=== PATIENT | female | born 1945 | race Caucasian/White ===

== ENCOUNTER 2019-06-21 07:25 | Day surgery (SDC) | payer MEDICARE ==
[~2019-06-21] VITALS: Ht 167.6 cm; Wt 64.0 kg
[~2019-06-21 07:25] MED LIST: LEVOTHYROXINE100 MCG PO; PRAVASTATIN SOD40 MG PO
--- NOTE | 2019-06-21 09:47 | NUR ---
06/21/19 0947 Ana Mcdonald 0991 PATIENT ARRIVES TO PACU SLEEPING, AWAKENS WITH VERBAL STIMULI, THEN BACK TO SLEEP. RESP EVEN AND UNLABORED, NC AT 2 LITERS, TURNED OFF ON ARRIVAL TO PACU.
--- NOTE | 2019-06-22 06:44 | OR ---
[facility] [address] [place], [place] [address] Signed DATE OF OPERATION: 06/21/2019 SURGEON: Tatyana Varner MD PREOPERATIVE DIAGNOSES: 1. Dysplastic polyp in 2010 requiring low anterior resection. 2. Dysplastic lesion, distal left colon requiring partial colectomy in approximately 2013. 3. Anastomotic stricture requiring dilation x2. 4. Diverticulosis (2014). 5. Adenomatous polyp (2014). POSTOPERATIVE DIAGNOSES: 1. 4-6 mm polyps at 42 cm, 35 cm, 20 cm (tattoo) and 6 cm. 2. Moderate internal hemorrhoid. 3. Colorectal anastomosis at 8-10 cm. PROCEDURE: Colonoscopy with hot biopsy. ESTIMATED BLOOD LOSS: None. INDICATIONS: Ericka is a 73-year-old female, who around 2010 had a dysplastic lesion in the distal sigmoid colon. She underwent a low anterior resection at that time. It sounds like the anastomosis was dilated at least twice. In followup around 2013, she had another dysplastic lesion in that distal left colon, so she had a partial colectomy and that came back without cancer. She has never required chemo or radiation. The second dilation was mainly for good measure. She is also known to have some diverticulosis documented in 2014. Again in 2014, she had an adenomatous colonic polyp removed. In the meantime, she is retired and moved down to [place], [place]. She was asked to see me in followup for a repeat colonoscopy. Her surgeon had asked that she come every 5 years. She gives no lower GI complaints. There is no family history of colon cancer or polyps. I had met with Ericka in the office and over several weeks we were able to track down her records. I had given her a booklet on colonoscopy. We did review that in detail. She understands colonoscopy quite well. She understands there is risk including, but not limited to gas, bloating, crampy abdominal pain, bleeding, perforation requiring surgery, and missed diagnosis. In addition, she does get nauseated with her bowel preps. We did offer her antiemetics, but she declined. She Electronically Signed By: TATYANA VARNER MD 06/22/19 0644 PATIENT NAME: ERICKA TIDWELL OPERATIVE REPORT DATE OF : 47 REPORT #: [id number] PHYSICIAN: TATYANA VARNER MD PCP: CARMEN GAMBOA DO REPORT IS CONFIDENTIAL AND NOT TO BE RELEASED WITHOUT AUTHORIZATION [facility] [address] [place], [place] [address] Signed said this time was better, but she still had some nausea. Consequently, the next time she might consider a longer bowel prep over several more hours and she might consider taking antiemetics. In addition, she has always done well with her Versed and fentanyl for sedation. She had expressed understanding and wished to proceed. PROCEDURE NOTE: Ericka was taken into our endoscopy suite and placed in the left lateral decubitus position. She was given IV sedation with 7 mg of Versed and 150 mcg of fentanyl to cover the case. A digital rectal exam was performed and I could feel the anastomosis at the tip of my index finger, probably 8-10 cm from the anal verge. It is partially scarred and tethered on one side, but otherwise it was relatively mobile. There were no masses noted. Very little in the way of external hemorrhoid tissue. Good sphincter tone. After this, the adult colonoscope was introduced and advanced under direct visualization of camera. Again, we could easily see the anastomosis at about 8-10 cm and it is well healed. It was obviously larger than our 36-Irish colonoscope and therefore does not appear to be strictured at this time. There is no granulation tissue. No ulcers. No evidence of any recurrent lesions around the anastomosis. As the scope went above, we started to see diverticula in the left colon throughout most of the left colon. They were moderate in size, minimal to moderate in number, and scattered about. We reached the cecum at 65 cm. We could easily see the appendiceal orifice and the ileocecal valve. Her prep was good. The scope was slowly withdrawn. The above-mentioned polyps were easily removed with the help of hot biopsy forceps. It looks like she has a mild tattoo at about 20 cm. Once down in the rectum, we had just enough room to retroflex the scope and we could see down on top of the anal canal. She does have some standard internal hemorrhoid tissue, but one seems to be fairly dominant. It might be worth looking at that with our anoscope in the office for confirmation. If there is any question at all, we could do a transanal excision of that lesion if necessary, but again, it looks like a standard moderate-sized internal hemorrhoid. After this, the gas was suctioned out and the colonoscope removed. Ericka tolerated the procedure quite well. RECOMMENDATIONS: I will see Ericka back in my office in 7 to 14 days to review her results. Afterwards, she wants to travel to [place] to visit her daughter as her daughter is requiring a surgery. Tatyana Varner MD Electronically Signed By: TATYANA VARNER MD 06/22/19 0644 PATIENT NAME: ERICKA TIDWELL OPERATIVE REPORT DATE OF : 47 REPORT #: [id number] PHYSICIAN: TATYANA VARNER MD PCP: CARMEN GAMBOA DO REPORT IS CONFIDENTIAL AND NOT TO BE RELEASED WITHOUT AUTHORIZATION [address] [place], [place] [address] Signed ALB/MODL /[id number] cc: DO Tatyana Ferreira MD Copies: CARMEN GAMBOA ANDREW L MD ~ Electronically Signed By: TATYANA VARNER MD 06/22/19 0644 PATIENT NAME: ERICKA TIDWELL OPERATIVE REPORT DATE OF : 47 REPORT #: [id number] PHYSICIAN: TATYANA VARNER MD PCP: CARMEN GAMBOA DO REPORT IS CONFIDENTIAL AND NOT TO BE RELEASED WITHOUT AUTHORIZATION
--- NOTE | 2019-06-22 17:37 | PATH ---
[facility] [address] [place], [place] [address] Signed SPECIMEN(S): A COLON POLYP AT 6 CM, LEFT SPECIMEN(S): B COLON POLYP AT 42 CM SPECIMEN(S): C COLON POLYP AY 35 CM SPECIMEN(S): D COLON POLYP AT 20 CM SPECIMEN SOURCE: A. COLON POLYP AT 6 CM, LEFT B. COLON POLYP AT 42 CM C. COLON POLYP AY 35 CM D. COLON POLYP AT 20 CM CLINICAL HISTORY: Colon resection, history adenomatous polyp. MICROSCOPIC DESCRIPTION: Histologic sections of all submitted blocks are examined by light microscopy. These findings, together with the gross examination, support the pathologic diagnosis. FINAL PATHOLOGIC DIAGNOSIS: A. Colon, descending, polyp at 6 cm, polypectomy: - Tubular adenoma. - Negative for high-grade dysplasia or malignancy. B. Colon, polyp at 42 cm, polypectomy: - Tubular adenoma with abundant cautery artifact. - Negative for high-grade dysplasia or malignancy. C. Colon, polyp at 35 cm, polypectomy: - Cauterized colonic mucosa with no histopathologic abnormality. - Negative for dysplasia or malignancy. D. Colon, polyp at 20 cm, polypectomy: - Colonic mucosa with abdundant cautery artifact and hyperplastic changes, see Comment. - Negative for high-grade dysplasia or malignancy. COMMENT: The abundant amount of cautery artifact in the colon polyp at 20 cm (D) precludes histologic evaluation for low-grade dysplasia. NAL:emb:C2NR GROSS DESCRIPTION: Four specimens are received in four containers, labeled "SH." A. The specimen, labeled "SH, 1" and "descending colon polypectomy, 6 cm" on PATIENT NAME: MINE TIDWELL PATHOLOGY DATE OF : 47 REPORT #: [id number] PHYSICIAN: GOLDEN LOPEZ PCP: CARMEN GAMBOA DO REPORT IS CONFIDENTIAL AND NOT TO BE RELEASED WITHOUT AUTHORIZATION [facility] [address] [place], [place] [address] Signed the requisition, is received in formalin and consists of a 0.3 x 0.2 x 0.2 cm, soft pale red, smooth polypoid portion of tissue that is submitted in toto in cassette (A1). B. The specimen, labeled "SH, 2" and "colon polyp at 42 cm," is received in formalin and consists of two soft peace tissue fragments that measure 0.4 cm each and are submitted in toto in cassette (B1). C. The specimen, labeled "SH, 3" and "colon polyp at 35 cm" on the requisition, is received in formalin and consists of a 0.2 x 0.2 x 0.1 cm, soft peace, smooth polypoid portion of tissue that is submitted in toto in cassette (C1). D. The specimen, labeled "SH, 4" and "colon polyp at 20 cm" on the requisition, is received in formalin and consists of a 0.4 x 0.3 x 0.2 cm, soft peace smooth, polypoid portion of tissue that is submitted in toto in cassette (D1). SS (under the direct supervision of a pathologist) The Gross Description was prepared using a voice recognition system. The report was reviewed for accuracy; however, sound-alike word errors, addition and/or deletions may occur. If there is any question about this report, please contact Client Services. PERFORMING LABORATORY: The technical component was performed by [facility], [address] [place] [id number] (Inspector Balance Wheel Motion: Kay Castañeda MD; CLIA# [id number]). [facility], [address] [place] [id number] (CLIA# [id number]). Diagnostician: Denise Brody MD Pathologist Electronically Signed 06/22/2019 Copies: ~ PATIENT NAME: MINE TIDWELL PATHOLOGY DATE OF : 47 REPORT #: [id number] PHYSICIAN: GOLDEN LOPEZ PCP: CARMEN GAMBOA DO REPORT IS CONFIDENTIAL AND NOT TO BE RELEASED WITHOUT AUTHORIZATION
== END 2019-06-21 10:20 | disposition home or self-care (01) ==
LOC: DS 07:25 → OPS 07:25 → DS 09:00 → OPS 09:00
PROVIDERS: Colon & Rectal Surgery
PROC: 0DBM8ZZ Excision of Descending Colon, Via Natural or Artificial Opening Endoscopic (ICD-10-PCS; 2019-06-21)
PROC: 0DBE8ZZ Excision of Large Intestine, Via Natural or Artificial Opening Endoscopic (ICD-10-PCS; principal; 2019-06-21 09:00)
DX: Z12.11 Encounter for screening for malignant neoplasm of colon (principal); D12.4 Benign neoplasm of descending colon; D12.6 Benign neoplasm of colon, unspecified; K64.8 Other hemorrhoids; E78.5 Hyperlipidemia, unspecified; E03.9 Hypothyroidism, unspecified; J45.909 Unspecified asthma, uncomplicated; Z98.890 Other specified postprocedural states; F17.210 Nicotine dependence, cigarettes, uncomplicated; Z90.49 Acquired absence of other specified parts of digestive tract; Z98.0 Intestinal bypass and anastomosis status; Z86.010 Personal history of colon polyps; Z88.5 Allergy status to narcotic agent; Z79.899 Other long term (current) drug therapy
CPT/HCPCS: 99153; G0500; J2250; J3010; J7121

== ENCOUNTER 2024-10-22 09:19 | Inpatient (IN) | payer MEDICARE ==
[2024-10-22] VITALS (9 sets, daily range): BP systolic 124–157; BP diastolic 56–66
[~2024-10-22] VITALS: Ht 167.6 cm; Wt 59.3 kg
[2024-10-22] MEDS ORDERED: LEVOTHYROXINE112 MCG PO (09:32)
[2024-10-22] MEDS ORDERED: ALBUTEROL/IPRATROPIUM 3 ML NEB INH ONE (10:00)
[2024-10-22 10:09] LABS: BASOPHILS 0.4 % (0.1-1.2); EOSINOPHILS 0.2 % (0.7-5.8); HEMATOCRIT 20.2 % (34.1-44.9); LYMPHOCYTES 12.9 % (19.3-51.7); MCH 22.7 PG (25.6-32.2); MCHC 27.7 g/dL (32.2-35.5); MCV 81.8 fL (79.4-94.8); MONOCYTES 14.4 % (4.7-12.5); NEUTROPHILS 70.5 % (34.0-71.1); PLATELET COUNT 423 K/uL (182-369); RBC 2.47 M/uL (3.93-5.22)
[2024-10-22 10:10] LABS: HEMOGLOBIN 5.6 g/dL (11.2-15.7)
[2024-10-22 10:34] LABS: ALBUMIN/GLOBULIN RATIO 0.4 (1.1-2.4); ANION GAP 11.5 (7-21); BILIRUBIN, TOTAL 0.3 mg/dL (0.2-1.0); BUN/CREATININE RATIO 22.5 (6.0-28.6); CALCIUM 9.5 mg/dL (8.5-10.1); CREATININE, SERUM 1.2 mg/dL (0.55-1.02); POTASSIUM 4.5 mmol/L (3.5-5.1); TSH, 3RD GENERATION 2.91 uIU/mL (0.358-3.740)
[2024-10-22 11:21] LABS: ABO A; RH NEGATIVE
[2024-10-22 11:22] LABS: ANTIBODY SCREEN NEGATIVE; IS CROSSMATCH COMPATIBLE
[2024-10-22 11:23] LABS: ABO A; RH NEGATIVE
[2024-10-22] MEDS ORDERED: PANTOPRAZOLE SODIUM 40 MG/10 ML VIAL IV ONE (11:30)
--- NOTE | 2024-10-22 11:42 | EKG ---
[facility] [address] [facility] [place] [address] Signed Normal sinus rhythm Left anterior fascicular block Minimal voltage criteria for LVH, may be normal variant ( R in aVL ) Septal infarct , age undetermined Abnormal ECG No previous ECGs available Confirmed by Edgardo Victor MD () on 10/22/2024 11:41:57 AM Electronically Signed By: EDGARDO VICTOR MD 10/22/24 1142 PATIENT NAME: MINE TIDWELL ARENAS Electrocardiogram DATE OF : 47 PHYSICIAN: EDGARDO VICTOR MD REPORT #: [id number] REPORT IS CONFIDENTIAL AND NOT TO BE RELEASED WITHOUT AUTHORIZATION
[2024-10-22] MEDS ORDERED: ondansetron HCL 4 MG/2 ML VIAL IV PRN (12:15)
--- NOTE | 2024-10-22 13:21 | NUR ---
Pt arrives to floor via stretcher, transferred by JODY Marcial from the ED. Pt is A&O, pt's sister Kailyn accompanies patient. Once brakes applied to stretcher, pt begins to stand. 1 Unit of PRBC infusing at this time, into IV site in LAC. Pt states "I need to use the toilet" and ambulates, SBA with L&T mgmnt into the bathroom where she voids into the toilet, unassisted. 1 unmeasured void documented on I/O chart. Pt back to bed, wearing her slippers. Warm [place] provided. Side rails up x3. Pt oriented to room and call light. Sister at bedside. Assessment done at this time.
--- NOTE | 2024-10-22 14:25 | NUR ---
Pt provided with blank paper, pens, and a clipboard to write down any questions or concerns she or her sister or family have.
--- NOTE | 2024-10-22 15:29 | NUR ---
FIRST UNIT OF PRBC TRANSFUSED (END TIME 152). PT IV SITES ARE FLUSHED, AND LOCKED. PC TO IMAGING, SPOKE TO MARVIN LORENZO, ADVISED HIM THAT THE PT IS READY FOR IMAGING.
--- NOTE | 2024-10-22 15:38 | NUR ---
Imaging here to transfer pt to CT via wheelchair.
--- NOTE | 2024-10-22 16:35 | NUR ---
OR NURSES HERE TO TRANSFER PT VIA STRETCHER TO OR FOR EGD. LR ON STRAIGHT TUBING ON BED. 2ND UNIT OF PRBC INFUSING AT A RATE OF 200ML/HR. 15 MINUTE POST START VSS.
[2024-10-22] MEDS ORDERED: propofoL 200 MG/20 ML VIAL ONE (16:55)
[2024-10-22] MEDS ORDERED: LIDOCAINE HCL 2% 5 ML SDV ONE (16:55)
--- NOTE | 2024-10-22 17:10 | NUR ---
10/22/24 171 Jana Gould 1658-PT ARRIVES TO PACU VIA STRETCHER, RESTING HIGH FOWLERS, PT RESPONSIVE TO TACTILE STIMULI BUT CONTINUES TO REST W/ EYES CLOSED, VSS ON 2L VIA NC, RR EVEN AND UNLABORED. 1708-PT AWAKENS EASILY TO VOICE, DENIES PAIN OR NAUSEA, TITRATED TO RA, VS REMAIN STABLE, PT RESTING W/ EYES CLOSED AGAIN, RR EVEN AND UNLABORED.
--- NOTE | 2024-10-22 17:34 | NUR ---
Pt back from OR at 1722. Pt report received at 1725 from JODY Bates. Pt is A&O, drowsy. VSS. Pt sister in the room. Pt self transferred from stretcher to bed, SBA. Tele unit placed on pt. per orders.
--- NOTE | 2024-10-22 17:37 | NUR ---
Dr. Robb in with pt to discuss CT results
--- NOTE | 2024-10-22 19:39 | NUR ---
REPORT RECEIVED FROM JODY GOLDBERG. PATIENT RESTING ON SIDE IN BED, RESPIRATIONS EVEN AND UNLABORED. SHE DENIES ANY NEEDS, RECENTLY AMBULATED WELL TO RESTROOM WITH MINIMAL SBA. CALL LIGHT IN REACH
[2024-10-22 20:00] LABS: BASOPHILS 0.6 % (0.1-1.2); EOSINOPHILS 0.3 % (0.7-5.8); MCH 25.3 PG (25.6-32.2); MCHC 30.8 g/dL (32.2-35.5); MCV 82.3 fL (79.4-94.8); MONOCYTES 14.5 % (4.7-12.5); NEUTROPHILS 66.8 % (34.0-71.1); PLATELET COUNT 355 K/uL (182-369); RBC 3.16 M/uL (3.93-5.22)
--- NOTE | 2024-10-22 20:18 | NUR ---
PATIENT LAYING IN BED WITH CALL LIGHT IN REACH AND NO FURTHER NEEDS AT THIS TIME. VITAL SIGNS AND I&OS DONE.
--- NOTE | 2024-10-22 20:50 | NUR ---
PATIENT GIVEN SCHEDULED MEDICATION, ASSESSMENT COMPLETE. DR. VICTOR IN ROOM TO SEE PATIENT, OKAY FOR CLEAR LIQUID DIET PER PROVIDER. PATIENT WISHES TO REST, RESPIRATIONS ARE EVEN AND UNLABORED. NO NEEDS IDENTIFIED, CALL LIGHT IN REACH.
[2024-10-22] MEDS ORDERED: PANTOPRAZOLE SODIUM 40 MG/10 ML VIAL IV SCH (21:00)
--- NOTE | 2024-10-22 23:19 | NUR ---
ROUNDED ON PATIENT, PATIENT RESTING WITH EYES CLOSED, RESPIRATIONS ARE EVEN AND UNLABORED. NO NEEDS ARE IDENTIFIED, CALL LIGHT IN REACH.
[2024-10-23 01:52] VITALS: BP 133/58
[2024-10-23 02:04] VITALS: BP 133/58
--- NOTE | 2024-10-23 02:27 | NUR ---
ROUNDED ON PATIENT, RESPIRATIONS ARE EVEN AND UNLABORED. PATIENT WOKE TO RN ENTERING ROOM, DENIES ANY NEEDS. CALL LIGHT IN REACH.
[2024-10-23 04:58] VITALS: BP 118/60
[2024-10-23 04:59] VITALS: BP 118/60
--- NOTE | 2024-10-23 05:02 | NUR ---
VS OBTAINED AND RECORDED. INTAKE AND OUTPUT DOCUMENTED. PATIENT RESTING WITH EYES CLOSED, RESPIRATIONS ARE EVEN AND UNLABORED. FRESH ICE PACK PROVIDED PER REQUEST. NO NEEDS, CALL LIGHT IN REACH
[2024-10-23 05:27] LABS: BASOPHILS 0.4 % (0.1-1.2); EOSINOPHILS 0.3 % (0.7-5.8); HEMATOCRIT 27.5 % (34.1-44.9); HEMOGLOBIN 8.4 g/dL (11.2-15.7); LYMPHOCYTES 14.8 % (19.3-51.7); MCH 25.4 PG (25.6-32.2); MCHC 30.5 g/dL (32.2-35.5); MCV 83.1 fL (79.4-94.8); MONOCYTES 13.3 % (4.7-12.5); NEUTROPHILS 69.7 % (34.0-71.1); PLATELET COUNT 390 K/uL (182-369); RBC 3.31 M/uL (3.93-5.22)
[2024-10-23 05:53] LABS: ALBUMIN 1.9 g/dL (3.4-5.0); ALBUMIN/GLOBULIN RATIO 0.39 (1.1-2.4); ANION GAP 12.9 (7-21); BILIRUBIN, TOTAL 0.9 mg/dL (0.2-1.0); BUN/CREATININE RATIO 17.94 (6.0-28.6); CREATININE, SERUM 1.17 mg/dL (0.55-1.02); PHOSPHORUS, INORGANIC 4.3 mg/dL (2.5-4.9); POTASSIUM 4.9 mmol/L (3.5-5.1); PROTEIN, TOTAL 6.8 g/dL (6.4-8.2)
--- NOTE | 2024-10-23 07:06 | NUR ---
VERBAL REPORT RECEIVED FROM JODY ROBERSON. PT RESTS IN BED AWAKE, VISITOR X1 AT BEDSIDE. NO REQUESTS AT THIS TIME.
[2024-10-23 08:34] VITALS: BP 117/55
[2024-10-23 08:35] VITALS: BP 117/55
--- NOTE | 2024-10-23 09:57 | NUR ---
LAUREN SEAY TOOK THE PT'S VITAL SIGNS AT 0830 AM THE PT'S NURSE RECORDED THE VITAL SIGNS THE PT WAS SITTING ON THE SIDE OF HER BED, WAITING FOR A DIFFERENT BREAKFAST CHOICE, HER DIET ORDERS HAD JUST CHANGED. PT HAD HER CALL LIGHT NEXT TO HER ON THE BED, AND THERE WAS A VISITOR IN THE PT'S ROOM
--- NOTE | 2024-10-23 10:18 | NUR ---
PT LAYING IN BED, EYES SHUT BUT PT WAS NOT SLEEPING THERE IS A VISITOR IN THE PT'S ROOM THE VISITOR ASKED IF LAUREN SEAY KNEW WHEN THE DOCTOR WOULD BE COMING TO TALK WITH THE PT, LAUREN SAID SHE WOULD LET THE DOCTOR KNOW THEY WANTED TO TALK WITH HIM THE PT HAD FRESH WATER AND THE VISITOR ALSO HAD FRESH WATER, THE CALL LIGHT WAS WITHIN REACH OF THE PT PT REPORTED NEEDED NOTHING ELSE AT THIS TIME
--- NOTE | 2024-10-23 10:37 | NUR ---
PT RESTS IN BED, AWAKE AND ALERT, VISITOR AT BEDSIDE. NO REQUESTS AT THIS TIME. REPORT PROVIDED TO JODY LEAL.
[2024-10-23] MEDS ORDERED: PROTONIX40 MG PO (11:17)
[2024-10-23] MEDS ORDERED: PHARMACY RENAL DOSE ADJUSTMENT 1 DOSE MISC PO SCH (12:00)
--- NOTE | 2024-10-24 09:22 | NUR ---
RETRO UR CLINICAL REVIEW: 2 [place] FOR MEDICARE-PER TRANSMITTER ENGINEER IN CHARGE MEETS INPT FOR SYMPTOMATIC GI BLEED MEDICARE INPT 10/22/24 ORDER MATCHES REG NO AUTH REQUIRED PER MEDICARE GUIDELINES DISCHARGE TO HOME WHEN STABLE
--- NOTE | 2024-10-26 09:26 | PATH ---
[facility] [address] [place], [place] [address] Signed SPECIMEN(S): A PYLORUS BIOPSY SPECIMEN(S): B ANTRUM BIOPSY SPECIMEN(S): C STOMACH BODY BIOPSY SPECIMEN SOURCE: A. PYLORUS BIOPSY B. ANTRUM BIOPSY C. STOMACH BODY BIOPSY CLINICAL HISTORY: GI bleed/duodenitis A-C) biopsy FINAL PATHOLOGIC DIAGNOSIS: A. Stomach, pylorus, biopsy - Gastric antral mucosa with no significant pathologic changes - Negative for Helicobacter pylori with HE stains B. Stomach, antrum, biopsy - Gastric antral mucosa with no significant pathologic changes - Negative for Helicobacter pylori with HE stains C. Stomach, body, biopsy - Gastric oxyntic mucosa with no significant pathologic changes - Negative for Helicobacter pylori with HE stains BRP MICROSCOPIC EXAMINATION: Histologic sections of all submitted blocks are examined by light microscopy. These findings, together with the gross examination, support the pathologic diagnosis. Histologic sections of all submitted blocks are examined by light microscopy. These findings, together with the gross examination, support the pathologic diagnosis. GROSS DESCRIPTION: A. The specimen, labeled and designated "Juan, Marie, pylorus biopsy," is received in formalin and consists of one peace soft tissue fragment, 0.4 cm. Entirely submitted in (A1). B. The specimen, labeled and designated "Juan, S, antrum biopsy," is received in formalin and consists of one peace soft tissue fragment, 0.4 cm. Entirely submitted in (B1). C. The specimen, labeled and designated "Juan, S, stomach body biopsy," is PATIENT NAME: MINE TIDWELL PATHOLOGY DATE OF : 47 REPORT #: [id number] PHYSICIAN: GOLDEN LOPEZ PCP: CARMEN GAMBOA DO REPORT IS CONFIDENTIAL AND NOT TO BE RELEASED WITHOUT AUTHORIZATION [facility] [address], [place] [address] Signed received in formalin and consists of one peace soft tissue fragment, 0.5 cm. Entirely submitted in (C1). AB (under the direct supervision of a pathologist) The Gross Description was prepared using a voice recognition system. The report was reviewed for accuracy; however, sound-alike word errors, addition and/or deletions may occur. If there is any question about this report, please contact Client Services. ADDITIONAL NOTES: Immunohistochemical and/or in situ hybridization studies if performed in this case included appropriate positive controls that reacted as expected. This test was developed and its performance characteristics determined by [employer]. It has not been cleared or approved by the U.S. Food and Drug Administration. The FDA has determined that such clearance or approval is not necessary. This test is used for clinical purposes. It should not be regarded as investigational or for research. [facility] [employer] is certified under the Clinical Laboratory Improvement Amendments of 1988 (CLIA) as qualified to perform high complexity clinical laboratory testing. PERFORMING LABORATORY: Technical component was performed by [facility], [address] [place] [id number] (CLIA# [id number]). Professional interpretation was performed by [facility], [address] [place], [place] [address] [place] [address] (CLIA#: [id number]). Diagnostician: Neil Alvarado MD Pathologist Electronically Signed 10/26/2024 Copies: ~ PATIENT NAME: MINE TIDWELL PATHOLOGY DATE OF : 47 REPORT #: [id number] PHYSICIAN: GOLDEN LOPEZ PCP: CARMEN GAMBOA DO REPORT IS CONFIDENTIAL AND NOT TO BE RELEASED WITHOUT AUTHORIZATION
== END 2024-10-23 11:50 | disposition home or self-care (01) | DRG 378 ==
LOC: ED 09:19 → MS 12:09
PROVIDERS: Emergency Medicine; Surgery; ADMIT Family Medicine; ATTEND Family Medicine
PROC: 0DB78ZX Excision of Stomach, Pylorus, Via Natural or Artificial Opening Endoscopic, Diagnostic (ICD-10-PCS; 2024-10-22)
PROC: 30233N1 Transfusion of Nonautologous Red Blood Cells into Peripheral Vein, Percutaneous Approach (ICD-10-PCS; 2024-10-22)
PROC: 0DB98ZX Excision of Duodenum, Via Natural or Artificial Opening Endoscopic, Diagnostic (ICD-10-PCS; principal; 2024-10-22 16:30)
DX: K29.81 Duodenitis with bleeding (principal); C79.02 Secondary malignant neoplasm of left kidney and renal pelvis; E03.9 Hypothyroidism, unspecified; E78.5 Hyperlipidemia, unspecified; Z66 Do not resuscitate; K44.9 Diaphragmatic hernia without obstruction or gangrene; D64.9 Anemia, unspecified; Z87.891 Personal history of nicotine dependence; Z88.5 Allergy status to narcotic agent; Z85.038 Personal history of other malignant neoplasm of large intestine; Z90.49 Acquired absence of other specified parts of digestive tract; Z98.890 Other specified postprocedural states
CPT/HCPCS: 00731; 36415; 36430; 70450; 71045; 71260; 74177; 80053; 83735; 84100; 84443; 84484; 85025; 85379; 86850; 86900; 86901; 86922; 87077; 88305; 93005; 93010; 94640; 99285-25; J2003; J2470; J2704; P9016; Q9967